=== PATIENT | male | born 1970 | race Caucasian/White ===

== ENCOUNTER 2024-06-20 18:08 | Inpatient (IN) | payer MEDICAID ==
[~2024-06-20] VITALS: Ht 177.8 cm; Wt 100.0 kg
[2024-06-20 18:53] LABS: BASOPHILS % (AUTO) 0.3 % (0-1); EOSINOPHILS # (AUTO) 0.1 X10'3 (0-0.9); EOSINOPHILS % (AUTO) 0.4 % (0-6); LYMPHOCYTES # (AUTO) 1.3 X10'3 (1.1-4.8); LYMPHOCYTES % (AUTO) 7.5 % (21-51); MEAN PLATELET VOLUME 7.5 FL (7.4-10.4); MONOCYTES # (AUTO) 1.2 X10'3 (0-0.9); MONOCYTES % (AUTO) 6.8 % (2-12); NEUTROPHILS # (AUTO) 14.7 X10'3 (1.8-7.7); PLATELET COUNT 367 X10'3 (140-440); WHITE BLOOD COUNT 17.3 X10'3 (4.5-11.0)
[2024-06-20 19:13] LABS: ALBUMIN 4.1 G/DL (3.4-5.0); ANION GAP 11 (8-16); BLOOD UREA NITROGEN 20 MG/DL (7-18); BUN/CREATININE RATIO 10.9 (10.0-20.0); CHLORIDE 70 MMOL/L (99-107); CREATININE 1.83 MG/DL (0.60-1.10); GLUCOSE 75 MG/DL (70-104); PRO BRAIN NATRIURETIC PEPTIDE 572 PG/ML (0-125); TOTAL CARBON DIOXIDE 22.7 MMOL/L (24-32); eCRCL 48 ML/MIN; eGFR 39 ML/MIN
[2024-06-20 19:16] LABS: SODIUM 104 MMOL/L (135-145)
[2024-06-20 19:21] LABS: HEMATOCRIT 37.9 % (42.0-52.0); HEMOGLOBIN 13.5 g/dl (14.0-17.9); MEAN CORPUSCULAR HEMOGLOBIN 32.6 PG (27.0-31.0); MEAN CORPUSCULAR HGB CONC 35.6 g/dL (33.0-36.5); MEAN CORPUSCULAR VOLUME 91.4 FL (78-98); RED BLOOD COUNT 4.15 X10'6 (4.70-6.10); RED CELL DISTRIBUTION WIDTH 13.1 % (11.5-14.5)
[2024-06-20] MEDS: normal saline 1000ML IV soln IVB ONE (19:33)
[2024-06-20] MEDS ORDERED: sodium chloride 3% IV.soln 100 ML IV PRN (20:10)
[2024-06-20 20:22] LABS: ALBUMIN 3.4 G/DL (3.4-5.0); ANION GAP 9 (8-16); BLOOD UREA NITROGEN 20 MG/DL (7-18); BUN/CREATININE RATIO 11.8 (10.0-20.0); CHLORIDE 76 MMOL/L (99-107); GLUCOSE 62 MG/DL (70-104); POTASSIUM 5.2 MMOL/L (3.5-5.1); TOTAL CARBON DIOXIDE 22.4 MMOL/L (24-32); eCRCL 51 ML/MIN; eGFR 42 ML/MIN
[2024-06-20] MEDS ORDERED: sodium chloride 3% IV.soln 500 ML IV PRN (20:27)
[2024-06-20 20:30] LABS: SODIUM 107 MMOL/L (135-145)
[2024-06-20] MEDS: Potassium Cl inj 20 MEQ in normal saline 1000ml 990 ML IV SCH (20:40)
[2024-06-20 20:41] LABS: BILIRUBIN,URINE NEGATIVE (Neg); CLARITY,URINE CLEAR (Clear); COLOR,URINE YELLOW (Yellow); GLUCOSE, URINE NEGATIVE (Neg); KETONES,URINE TRACE mg/dl (Neg); LEUKOCYTE ESTERASE ,URINE NEGATIVE (Neg); NITRITES, URINE NEGATIVE (Neg); OCCULT BLOOD,URINE TRACE-INTACT (Neg); PH,URINE 5.5 (4.8-8.0); PROTEIN,URINE NEGATIVE (Neg); UROBILINOGEN,URINE 0.2 E.U/dL (0.2-1.0)
[2024-06-20 20:45] LABS: UA COLLECTION TYPE CLN CATCH MIDSTREAM
[2024-06-20 20:46] LABS: BACTERIA,URINE FEW /HPF (Neg); SQUAMOUS EPITHELIAL CELL,UR FEW /LPF (FEW); WBC,URINE 0-4 /HPF (0-4)
[2024-06-20] MEDS ORDERED: acetaminophen 325mg tablet PO PRN ×2 (20:50)
[2024-06-20] MEDS ORDERED: ondansetron/PF 4mg/2ml inj IV PRN (20:50)
[2024-06-20] MEDS: potassium Cl 20mEq in NS 1,000 ML IV SCH (20:54)
[2024-06-20] MEDS ORDERED: potassium Cl 20mEq in NS 1,000 ML IV SCH (20:54)
[2024-06-20] MEDS: normal saline 1000ml 1,000 ML IV SCH (21:06)
[2024-06-20 21:09] LABS: OSMOLALITY 233 MOSM/K (280-300)
[2024-06-20 21:25] LABS: THYROID STIMULATING HORMONE 1.35 ulU/ml (0.34-4.50); URIC ACID 6.7 MG/DL (3.5-7.2)
[2024-06-20 22:25] LABS: CHLORIDE,URINE RANDOM < 50 MEQ/L; SODIUM,URINE RANDOM < 15 MEQ/L
[2024-06-21] VITALS (7 sets, daily range): BP systolic 109–143; BP diastolic 45–62; PULSE 69–88; RESP 16–21; TEMP 97.9–98.6; O2SAT 94–98
[2024-06-21 01:53] LABS: BASOPHILS # (AUTO) 0.1 X10'3 (0-0.2); BASOPHILS % (AUTO) 0.5 % (0-1); EOSINOPHILS # (AUTO) 0.1 X10'3 (0-0.9); EOSINOPHILS % (AUTO) 0.7 % (0-6); HEMATOCRIT 33.8 % (42.0-52.0); HEMOGLOBIN 11.8 g/dl (14.0-17.9); LYMPHOCYTES % (AUTO) 13.8 % (21-51); MEAN CORPUSCULAR HEMOGLOBIN 32.9 PG (27.0-31.0); MEAN CORPUSCULAR VOLUME 93.9 FL (78-98); MEAN PLATELET VOLUME 7.3 FL (7.4-10.4); MONOCYTES # (AUTO) 1.2 X10'3 (0-0.9); MONOCYTES % (AUTO) 8.1 % (2-12); NEUTROPHILS # (AUTO) 10.9 X10'3 (1.8-7.7); NEUTROPHILS % (AUTO) 76.9 % (42-75); PLATELET COUNT 265 X10'3 (140-440); RED CELL DISTRIBUTION WIDTH 12.8 % (11.5-14.5); WHITE BLOOD COUNT 14.2 X10'3 (4.5-11.0)
[2024-06-21 01:58] LABS: ALBUMIN 3.3 G/DL (3.4-5.0); ANION GAP 11 (8-16); BLOOD UREA NITROGEN 20 MG/DL (7-18); BUN/CREATININE RATIO 12.5 (10.0-20.0); CALCIUM 8.4 MG/DL (8.5-10.1); CHLORIDE 78 MMOL/L (99-107); GLUCOSE 59 MG/DL (70-104); POTASSIUM 4.2 MMOL/L (3.5-5.1); eCRCL 55 ML/MIN; eGFR 45 ML/MIN
[2024-06-21 02:01] LABS: SODIUM 110 MMOL/L (135-145)
[2024-06-21] MEDS ORDERED: METF-438 PO (05:50)
[2024-06-21] MEDS ORDERED: LISI40TA13 PO (05:50)
[2024-06-21] MEDS ORDERED: AMLO-708 PO (05:50)
[2024-06-21] MEDS ORDERED: BENZ1TAB78 PO (05:50)
[2024-06-21] MEDS ORDERED: DESMOPRESSIN IV ONE (07:00)
[2024-06-21] MEDS ORDERED: NORMAL SALINE IV ONE (07:00)
[2024-06-21] MEDS: sodium chloride 1gm tablet PO SCH ×2 (07:35→13:14)
[2024-06-21] MEDS: desmopressin inj. 30 MCG in normal saline 100ml IV soln 92.5 ML IV ONE (07:36)
[2024-06-21] MEDS: enoxaparin 40mg/0.4ml syringe SUBCUT SCH (07:36)
[2024-06-21 07:45] LABS: ALBUMIN 3.3 G/DL (3.4-5.0); ANION GAP 11 (8-16); BLOOD UREA NITROGEN 21 MG/DL (7-18); BUN/CREATININE RATIO 13.8 (10.0-20.0); CALCIUM 8.4 MG/DL (8.5-10.1); CHLORIDE 81 MMOL/L (99-107); CREATININE 1.52 MG/DL (0.60-1.10); GLUCOSE 55 MG/DL (70-104); eCRCL 57 ML/MIN; eGFR 48 ML/MIN
[2024-06-21 07:49] LABS: POTASSIUM 4.3 MMOL/L (3.5-5.1)
[2024-06-21 07:50] LABS: SODIUM 111 MMOL/L (135-145)
[2024-06-21] MEDS ORDERED: HALO2TAB PO (08:11)
[2024-06-21 10:00] LABS: ALBUMIN 3.3 G/DL (3.4-5.0); ANION GAP 13 (8-16); BLOOD UREA NITROGEN 19 MG/DL (7-18); BUN/CREATININE RATIO 11.9 (10.0-20.0); CALCIUM 8.3 MG/DL (8.5-10.1); CHLORIDE 82 MMOL/L (99-107); CREATININE 1.59 MG/DL (0.60-1.10); GLUCOSE 115 MG/DL (70-104); POTASSIUM 4.2 MMOL/L (3.5-5.1); TOTAL CARBON DIOXIDE 18.8 MMOL/L (24-32); eCRCL 55 ML/MIN; eGFR 46 ML/MIN
[2024-06-21 10:07] LABS: SODIUM 114 MMOL/L (135-145)
[2024-06-21 10:27] LABS: ALANINE AMINOTRANSFERASE 71 U/L (12-78); ALKALINE PHOSPHATASE 74 IU/L (46-116); ASPARTATE AMINO TRANSFERASE 158 U/L (10-37); BILIRUBIN,TOTAL 0.7 MG/DL (0.1-1.0); MAGNESIUM 1.5 MG/DL (1.5-2.4); PHOSPHORUS 3.1 MG/DL (2.3-4.5); TOTAL PROTEIN 6.5 G/DL (6.4-8.2)
[2024-06-21 14:09] LABS: ALBUMIN 3.2 G/DL (3.4-5.0); ANION GAP 7 (8-16); BLOOD UREA NITROGEN 20 MG/DL (7-18); BUN/CREATININE RATIO 13.7 (10.0-20.0); CALCIUM 8.5 MG/DL (8.5-10.1); CHLORIDE 85 MMOL/L (99-107); CREATININE 1.46 MG/DL (0.60-1.10); GLUCOSE 155 MG/DL (70-104); POTASSIUM 3.8 MMOL/L (3.5-5.1); TOTAL CARBON DIOXIDE 21.3 MMOL/L (24-32); eCRCL 60 ML/MIN; eGFR 50 ML/MIN
[2024-06-21 14:13] LABS: SODIUM 113 MMOL/L (135-145)
[2024-06-21] MEDS: haloperidol 1mg tablet PO SCH (20:17)
[2024-06-21] MEDS: benztropine 1mg tablet PO SCH (20:30)
[2024-06-21 21:18] LABS: ALBUMIN 3.2 G/DL (3.4-5.0); ANION GAP 7 (8-16); BLOOD UREA NITROGEN 18 MG/DL (7-18); CALCIUM 8.6 MG/DL (8.5-10.1); CHLORIDE 87 MMOL/L (99-107); CREATININE 1.29 MG/DL (0.60-1.10); GLUCOSE 115 MG/DL (70-104); POTASSIUM 3.8 MMOL/L (3.5-5.1); TOTAL CARBON DIOXIDE 24.6 MMOL/L (24-32); eCRCL 68 ML/MIN; eGFR 58 ML/MIN
[2024-06-21 21:20] LABS: SODIUM 119 MMOL/L (135-145)
[2024-06-22] VITALS (7 sets, daily range): BP systolic 106–165; BP diastolic 50–105; PULSE 62–96; RESP 14–20; TEMP 97.6–98.7; O2SAT 96–99
[2024-06-22 05:46] LABS: BASOPHILS # (AUTO) 0.1 X10'3 (0-0.2); EOSINOPHILS # (AUTO) 0.1 X10'3 (0-0.9); EOSINOPHILS % (AUTO) 1.5 % (0-6); HEMATOCRIT 32.3 % (42.0-52.0); HEMOGLOBIN 11.4 g/dl (14.0-17.9); LYMPHOCYTES # (AUTO) 1.8 X10'3 (1.1-4.8); LYMPHOCYTES % (AUTO) 20.9 % (21-51); MEAN CORPUSCULAR HEMOGLOBIN 33.1 PG (27.0-31.0); MEAN CORPUSCULAR HGB CONC 35.4 g/dL (33.0-36.5); MEAN CORPUSCULAR VOLUME 93.7 FL (78-98); MEAN PLATELET VOLUME 7.8 FL (7.4-10.4); MONOCYTES # (AUTO) 0.8 X10'3 (0-0.9); MONOCYTES % (AUTO) 8.8 % (2-12); NEUTROPHILS # (AUTO) 5.9 X10'3 (1.8-7.7); NEUTROPHILS % (AUTO) 67.8 % (42-75); PLATELET COUNT 286 X10'3 (140-440); RED BLOOD COUNT 3.45 X10'6 (4.70-6.10); RED CELL DISTRIBUTION WIDTH 13.4 % (11.5-14.5); WHITE BLOOD COUNT 8.7 X10'3 (4.5-11.0)
[2024-06-22 06:05] LABS: ALBUMIN 3.2 G/DL (3.4-5.0); ANION GAP 3 (8-16); BLOOD UREA NITROGEN 13 MG/DL (7-18); BUN/CREATININE RATIO 10.9 (10.0-20.0); CALCIUM 8.6 MG/DL (8.5-10.1); CHLORIDE 90 MMOL/L (99-107); CREATININE 1.19 MG/DL (0.60-1.10); GLUCOSE 88 MG/DL (70-104); POTASSIUM 3.4 MMOL/L (3.5-5.1); TOTAL CARBON DIOXIDE 24.9 MMOL/L (24-32); eCRCL 73 ML/MIN; eGFR 64 ML/MIN
[2024-06-22 06:14] LABS: SODIUM 118 MMOL/L (135-145)
[2024-06-22] MEDS: amLODIPine 5mg tablet PO SCH (08:19)
[2024-06-22] MEDS ORDERED: dextrose 50%-water 50ml dispensing syringe IV PRN ×2 (09:00)
[2024-06-22] MEDS ORDERED: glucagon, human recombinant 1mg kit SUBCUT PRN (09:00)
[2024-06-22] MEDS ORDERED: DEXTROSE 15 GM of carb/4 tabs (each vial/BOTTLE has 4 tablets) PO PRN ×2 (09:00)
[2024-06-22] MEDS: potassium Cl 20 mEq SR tablet PO STA (09:32)
[2024-06-22 10:15] LABS: ALBUMIN 3.4 G/DL (3.4-5.0); ANION GAP 7 (8-16); BLOOD UREA NITROGEN 13 MG/DL (7-18); BUN/CREATININE RATIO 10.4 (10.0-20.0); CALCIUM 8.7 MG/DL (8.5-10.1); CHLORIDE 91 MMOL/L (99-107); CREATININE 1.25 MG/DL (0.60-1.10); GLUCOSE 105 MG/DL (70-104); POTASSIUM 3.8 MMOL/L (3.5-5.1); SODIUM 121 MMOL/L (135-145); TOTAL CARBON DIOXIDE 23.5 MMOL/L (24-32); eCRCL 70 ML/MIN; eGFR 60 ML/MIN
[2024-06-22] MEDS: INSULIN LISPRO 100 UNIT/ML INSULN.PEN MULTI-DOSE SQ SCH (12:00)
[2024-06-22 13:50] LABS: ALBUMIN 3.6 G/DL (3.4-5.0); ANION GAP 7 (8-16); BLOOD UREA NITROGEN 12 MG/DL (7-18); BUN/CREATININE RATIO 9.1 (10.0-20.0); CALCIUM 8.9 MG/DL (8.5-10.1); CHLORIDE 91 MMOL/L (99-107); CREATININE 1.32 MG/DL (0.60-1.10); GLUCOSE 102 MG/DL (70-104); POTASSIUM 4.3 MMOL/L (3.5-5.1); SODIUM 121 MMOL/L (135-145); TOTAL CARBON DIOXIDE 23.1 MMOL/L (24-32); eCRCL 66 ML/MIN; eGFR 57 ML/MIN
[2024-06-22 17:43] LABS: ALBUMIN 3.5 G/DL (3.4-5.0); ANION GAP 7 (8-16); BLOOD UREA NITROGEN 13 MG/DL (7-18); BUN/CREATININE RATIO 11.8 (10.0-20.0); CALCIUM 8.7 MG/DL (8.5-10.1); CHLORIDE 92 MMOL/L (99-107); GLUCOSE 97 MG/DL (70-104); POTASSIUM 4.2 MMOL/L (3.5-5.1); SODIUM 125 MMOL/L (135-145); TOTAL CARBON DIOXIDE 25.8 MMOL/L (24-32); eCRCL 79 ML/MIN; eGFR 70 ML/MIN
[2024-06-22 21:31] LABS: ALBUMIN 3.4 G/DL (3.4-5.0); ANION GAP 10 (8-16); BLOOD UREA NITROGEN 13 MG/DL (7-18); BUN/CREATININE RATIO 10.2 (10.0-20.0); CALCIUM 8.8 MG/DL (8.5-10.1); CHLORIDE 94 MMOL/L (99-107); CREATININE 1.28 MG/DL (0.60-1.10); GLUCOSE 138 MG/DL (70-104); POTASSIUM 3.7 MMOL/L (3.5-5.1); SODIUM 126 MMOL/L (135-145); TOTAL CARBON DIOXIDE 22.5 MMOL/L (24-32); eCRCL 68 ML/MIN; eGFR 59 ML/MIN
[2024-06-23 03:00] LABS: ANION GAP 6 (8-16); BLOOD UREA NITROGEN 12 MG/DL (7-18); BUN/CREATININE RATIO 10.3 (10.0-20.0); CHLORIDE 97 MMOL/L (99-107); CREATININE 1.17 MG/DL (0.60-1.10); GLUCOSE 98 MG/DL (70-104); POTASSIUM 3.9 MMOL/L (3.5-5.1); SODIUM 128 MMOL/L (135-145); TOTAL CARBON DIOXIDE 25.2 MMOL/L (24-32)
[2024-06-23 03:01] LABS: ALBUMIN 3.4 G/DL (3.4-5.0); CALCIUM 8.9 MG/DL (8.5-10.1); eCRCL 75 ML/MIN; eGFR 65 ML/MIN
[2024-06-23 06:00] VITALS: BP 102/62; PULSE 69; RESP 19; TEMP 97.7; O2SAT 96
[2024-06-23 06:04] LABS: BASOPHILS # (AUTO) 0.1 X10'3 (0-0.2); BASOPHILS % (AUTO) 1.4 % (0-1); EOSINOPHILS # (AUTO) 0.2 X10'3 (0-0.9); EOSINOPHILS % (AUTO) 3.4 % (0-6); HEMATOCRIT 33.7 % (42.0-52.0); HEMOGLOBIN 11.9 g/dl (14.0-17.9); LYMPHOCYTES # (AUTO) 1.9 X10'3 (1.1-4.8); LYMPHOCYTES % (AUTO) 26.7 % (21-51); MEAN CORPUSCULAR HEMOGLOBIN 33.5 PG (27.0-31.0); MEAN CORPUSCULAR HGB CONC 35.2 g/dL (33.0-36.5); MEAN CORPUSCULAR VOLUME 95.2 FL (78-98); MEAN PLATELET VOLUME 7.6 FL (7.4-10.4); MONOCYTES # (AUTO) 0.8 X10'3 (0-0.9); NEUTROPHILS # (AUTO) 4.1 X10'3 (1.8-7.7); NEUTROPHILS % (AUTO) 57.5 % (42-75); PLATELET COUNT 331 X10'3 (140-440); RED BLOOD COUNT 3.54 X10'6 (4.70-6.10); RED CELL DISTRIBUTION WIDTH 13.4 % (11.5-14.5); WHITE BLOOD COUNT 7.2 X10'3 (4.5-11.0)
[2024-06-23 06:07] LABS: ALBUMIN 3.4 G/DL (3.4-5.0); ANION GAP 8 (8-16); BLOOD UREA NITROGEN 10 MG/DL (7-18); BUN/CREATININE RATIO 8.3 (10.0-20.0); CALCIUM 8.8 MG/DL (8.5-10.1); CHLORIDE 97 MMOL/L (99-107); GLUCOSE 96 MG/DL (70-104); POTASSIUM 3.9 MMOL/L (3.5-5.1); SODIUM 130 MMOL/L (135-145); TOTAL CARBON DIOXIDE 25.1 MMOL/L (24-32); eCRCL 73 ML/MIN; eGFR 63 ML/MIN
[2024-06-23 09:15] VITALS: RESP 16
[2024-06-23 10:00] VITALS: BP 143/75; PULSE 97; RESP 16; TEMP 97.6; O2SAT 97
[2024-06-23 10:22] LABS: ALBUMIN 3.5 G/DL (3.4-5.0); ANION GAP 12 (8-16); BLOOD UREA NITROGEN 11 MG/DL (7-18); BUN/CREATININE RATIO 8.1 (10.0-20.0); CALCIUM 9.3 MG/DL (8.5-10.1); CHLORIDE 97 MMOL/L (99-107); CREATININE 1.36 MG/DL (0.60-1.10); GLUCOSE 140 MG/DL (70-104); POTASSIUM 3.8 MMOL/L (3.5-5.1); SODIUM 131 MMOL/L (135-145); TOTAL CARBON DIOXIDE 22.4 MMOL/L (24-32); eCRCL 64 ML/MIN; eGFR 55 ML/MIN
[2024-06-23 11:00] VITALS: BP_SYST 131; BP_SYST 137; BP_SYST 194; BP_DIAS 104; BP_DIAS 76; BP_DIAS 96; PULSE 74; PULSE 85; PULSE 86
[2024-06-23 14:47] LABS: ALBUMIN 3.5 G/DL (3.4-5.0); ANION GAP 9 (8-16); BLOOD UREA NITROGEN 12 MG/DL (7-18); CHLORIDE 99 MMOL/L (99-107); CREATININE 1.33 MG/DL (0.60-1.10); GLUCOSE 207 MG/DL (70-104); SODIUM 132 MMOL/L (135-145); TOTAL CARBON DIOXIDE 24.4 MMOL/L (24-32); eCRCL 66 ML/MIN; eGFR 56 ML/MIN
[2024-06-23 18:00] VITALS: BP 147/71; PULSE 80; RESP 16; TEMP 98.4; O2SAT 95
[2024-06-23 18:06] LABS: ALBUMIN 3.7 G/DL (3.4-5.0); ANION GAP 10 (8-16); BLOOD UREA NITROGEN 12 MG/DL (7-18); BUN/CREATININE RATIO 9.5 (10.0-20.0); CALCIUM 9.5 MG/DL (8.5-10.1); CHLORIDE 100 MMOL/L (99-107); CREATININE 1.26 MG/DL (0.60-1.10); GLUCOSE 115 MG/DL (70-104); POTASSIUM 4.1 MMOL/L (3.5-5.1); SODIUM 134 MMOL/L (135-145); TOTAL CARBON DIOXIDE 23.7 MMOL/L (24-32); eCRCL 69 ML/MIN; eGFR 60 ML/MIN
== END 2024-06-23 21:00 | disposition left against medical advice (07) | DRG 426 ==
LOC: ER 18:10 → ED HOLD 20:53 → EDBEDREQ 06-21 09:19 → CICU 2S 06-21 10:16 → SUR 3N 06-21 16:58
PROVIDERS: ADMIT Internal Medicine Critical Care Medicine; ATTEND Internal Medicine Critical Care Medicine
DX: E22.2 Syndrome of inappropriate secretion of antidiuretic hormone (principal); N17.9 Acute kidney failure, unspecified; F20.9 Schizophrenia, unspecified; E87.6 Hypokalemia; R56.9 Unspecified convulsions; T43.4X5A Adverse effect of butyrophenone and thiothixene neuroleptics, initial encounter; Z53.21 Procedure and treatment not carried out due to patient leaving prior to being seen by health care provider; Y92.89 Other specified places as the place of occurrence of the external cause
CPT/HCPCS: 36415; 70450; 71045; 80048; 80053; 81001; 82436; 82948; 83036; 83735; 83880; 83930; 84100; 84133; 84300; 84443; 84484; 84550; 85025; 87081; 93005; 97110; 97116; 97161; 99291; A6258; G0378; J1650; J1815; J2597; J7030